=== PATIENT | female | born 2005 | race Caucasian/White ===

== ENCOUNTER 2025-02-13 19:45 | Emergency (ER) | payer BC, SELFPAY ==
--- NOTE | ~2025-02-13 | CT_ITS ---
CT ABDOMEN AND PELVIS WITHOUT CONTRAST Clinical History: right flank pain Comparison: None Technique: Unenhanced axial images lung bases to symphysis pubis Coronal, sagittal reformats CT images acquired with automatic exposure control for dose reduction DLP: 1307 mGy-cm Findings: Without intravenous contrast, sensitivity for detecting visceral parenchymal abnormalities decreased. Lung bases: Clear. Visualized heart and pericardium: Unremarkable. Liver: Enlarged. Steatosis. Gallbladder: Unremarkable. Spleen: Unremarkable. Pancreas: Unremarkable. Adrenal glands: Unremarkable. Kidneys: Right kidney- Hydronephrosis. No renal stones. Left kidney- No hydronephrosis. 2 mm stone. Distal esophagus/stomach: Unremarkable. Small bowel loops: Normal caliber and wall thickness. Colon: Normal caliber and wall thickness. Normal RLQ appendix. Nodes: No enlarged nodes. Peritoneum: No ascites. No free intraperitoneal air. Urinary bladder: 2 mm stone right UVJ. Uterus: Unremarkable. Adnexa: No masses. Bones: No acute bony abnormality. Soft tissues: Unremarkable. Unopacified abdominal aorta: No aneurysmal dilatation. IMPRESSION: 1. Hydronephrosis right kidney due to 2 mm UVJ stone. 2. Additional findings as above. Reviewed, dictated and finalized at location R. D ENGINEER
[2025-02-13 19:52] VITALS: BP 155/99; PULSE 90; RESP 18; TEMP 36.9; O2SAT 98
[2025-02-13 20:17] VITALS: BP 126/81; PULSE 89; RESP 14; TEMP 36.9; O2SAT 98
[2025-02-13] MEDS: MORPHINE SULFATE (*CRX) 4 MG/ML INJ 2 MG IV PUSH (22:46)
[2025-02-13] MEDS: Please add drug allergy info to patient profile. 1 EACH XX (22:46)
[2025-02-13 22:50] LABS: Hematocrit 31.8 % (37.0-47.0); Hemoglobin 9.1 g/dL (12.0-15.0); Immature Granulocyte Percent A 0.4 % (0-0.5); Lymphocytes Absolute Auto 2.39 K/mm3 (0.9-3.2); Mean Corpuscular HGB Conc 28.6 g/dl (32-36); Mean Corpuscular Hemoglobin 18.2 pg (26-34); Mean Corpuscular Volume 63.6 fl (80-100); Nucleated Red Blood Cells Absolute Auto 0.000 K/mm3 (0.0-0.012); Nucleated Red Blood Cells Perc 0.0 % (0.0-0.2); Platelet Count Result 527 k/mm3 (150-375); Red Blood Count 5.00 M/mm3 (4.2-5.4); White Blood Count 16.4 K/mm3 (4.5-10.0)
--- NOTE | 2025-02-13 23:02 | ED_ITS ---
HPI - General Adult General Chief complaint: Back Pain/Injury Stated complaint: R kidney stone Time Seen by Provider: 02/13/25 20:12 History of Present Illness HPI narrative: 19-year-old female presenting with right flank pain. Patient states symptoms began last Sunday, initially presenting as a stomachache. Patient states a CT scan was ordered by her PCP which demonstrated a 3 mm kidney stone. Patient was provided with conservative therapy and instructed to come to the ER if symptoms worsened. Patient reports onset of persistent vomiting, unable to tolerate oral intake, and states her pain became unmanageable yesterday. Continues to report right flank pain, increased urinary frequency, and dysuria. Denies fevers/chills, chest pain/shortness of breath, diarrhea, or vaginal concerns. Related Data Allergies Allergy/AdvReac Type Severity Reaction Status Date / Time No Known Allergies Allergy Verified 02/13/25 22:45 Review of Systems 2 Review of Systems: All systems reviewed & are unremarkable except as noted in HPI and below Exam 2 Narrative: GENERAL: Well-appearing, well-nourished, and in no acute distress. HEAD: Normocephalic, atraumatic. EYES: PERRLA and EOMI. ENT: Nares clear, no rhinorrhea or epistaxis. Mucous membranes moist. Oropharynx without tonsillar hypertrophy exudate or other lesions. Bilateral TMs pearly aguilra non-bulging NECK: Supple. No adenopathy or masses. No carotid bruits or JVD CHEST: Clear to auscultation. No respiratory distress. No wheezes rales or rhonchi HEART: Regular rate and rhythm. No murmur heard. Normal peripheral pulses. ABDOMEN: Soft, nondistended, normal active bowel sounds. Mild right sided TTP. EXTREMITIES: Normal range of motion. No edema. SKIN: Warm, dry, no rash. NEURO: No focal deficits. Alert and oriented x3. PSYCH: Normal mood and affect Course Vital Signs Vital signs: Vital Signs Temperature 98.4 F 02/13/25 19:52 Pulse Rate 90 02/13/25 19:52 Respiratory Rate 18 02/13/25 19:52 Blood Pressure 155/99 H 02/13/25 19:52 Pulse Oximetry 98 02/13/25 19:52 Oxygen Delivery Room Air 02/13/25 19:52 Temperature 98.4 F 02/13/25 20:17 Pulse Rate 86 02/14/25 01:37 Respiratory Rate 14 02/14/25 01:37 Blood Pressure 135/74 02/14/25 01:37 Pulse Oximetry 99 02/14/25 01:37 Oxygen Delivery Room Air 02/13/25 19:52 Medical Decision Making MDM Narrative Medical decision making narrative: 19-year-old female presenting with right flank pain. Patient states symptoms began last Sunday, initially presenting as a stomachache. Patient states a CT scan was ordered by her PCP which demonstrated a 3 mm kidney stone. Patient was provided with conservative therapy including ciprofloxacin, tamsulosin, and tramadol and instructed to come to the ER if symptoms worsened. Patient reports onset of persistent vomiting, unable to tolerate oral intake, and states her pain became unmanageable yesterday. Continues to report right flank pain, increased urinary frequency, and dysuria. Denies fevers/chills, chest pain/shortness of breath, diarrhea, or vaginal concerns. Upon my initial exam patient is resting comfortably, no longer reporting nausea. States pain is a 6/10. Administered 2 mg of morphine with improvement in pain. CT abdomen pelvis demonstrates right hydroureteronephrosis with 2-3 mm calculus at the right distal ureter/UVJ, punctate nonobstructing left renal calculus, and urinary bladder wall thickening. UA demonstrates signs of a UTI. Labs demonstrate leukocytosis at 16.3 and H&H of 9.3 and 31.8. No prior lab work to compare to but patient and mother report improvement in leukocytosis and are aware of her low H&H all previously addressed with PCP. Recently began supplementation for this. Advised patient to continue tamsulosin and antibiotic. Will send home with short-term pain control, antiemetic, and a referral for Urology follow-up. Given 1 L NS before discharge. Patient agrees with discussion and after shared medical decision making agrees with plan of care. All questions were answered to the patient's satisfaction. The patient is appropriate for outpatient treatment and follow-up. Given reasons to return. Medical Records Medical records reviewed: Yes I reviewed the external patient's medical records. Vital Signs Vital Signs: Vital Signs Temperature 98.4 F 02/13/25 19:52 Pulse Rate 90 02/13/25 19:52 Respiratory Rate 18 02/13/25 19:52 Blood Pressure 155/99 H 02/13/25 19:52 Pulse Oximetry 98 02/13/25 19:52 Oxygen Delivery Room Air 02/13/25 19:52 Temperature 98.4 F 02/13/25 20:17 Pulse Rate 86 02/14/25 01:37 Respiratory Rate 14 02/14/25 01:37 Blood Pressure 135/74 02/14/25 01:37 Pulse Oximetry 99 02/14/25 01:37 Oxygen Delivery Room Air 02/13/25 19:52 Lab Data Lab results reviewed: Yes I reviewed the patient's lab results. 02/13/25 22:45 02/13/25 22:45 Labs: Lab Results 02/13/25 02/13/25 Range/Units 20:21 22:45 WBC 16.4 H (4.5-10.0) K/mm3 RBC 5.00 (4.2-5.4) M/mm3 Hgb 9.1 L (12.0-15.0) g/dL Hct 31.8 L (37.0-47.0) % MCV 63.6 L (80-100) fl MCH 18.2 L (26-34) pg MCHC 28.6 L (32-36) g/dl RDW 18.9 H (11.5-14.5) % Plt Count 527 H (150-375) k/mm3 MPV 9.0 (7.4-10.4) fl Immature Gran % (Auto) 0.4 (0-0.5) % Neut % (Auto) 79.2 H (45.5-73.1) % Lymph % (Auto) 14.6 L (18.3-44.2) % [place] % (Auto) 3.9 (2.6-8.5) % Eos % (Auto) 1.5 (0-4.4) % Baso % (Auto) 0.4 (0.2-1.2) % Lymph # (Auto) 2.39 (0.9-3.2) K/mm3 [place] # (Auto) 0.6 (0.1-0.6) K/mm3 Eos # (Auto) 0.2 (0-0.3) K/mm3 Baso # (Auto) 0.1 (0.0-0.1) K/mm3 Abs Immat Gran (auto) 0.06 H (0.00-0.031) K/mm3 Absolute Neuts (auto) 13.0 H (1.3-6.7) K/mm3 Absolute Nucleated RBC 0.000 (0.0-0.012) K/mm3 Band Neutrophils % Not Reportable Nucleated RBC % 0.0 (0.0-0.2) % Platelet Estimate Increased (Adequate) Hypochromasia 1+ Ovalocytes 1+ Schistocytes None seen Sodium 138 (137-145) mmol/L Potassium 3.7 (3.4-5.0) mmol/L Chloride 106 (98-107) mmol/L Carbon Dioxide 26 (22-30) mmol/L Anion Gap 6 (4-12) mmol/L BUN 9 (7-17) mg/dL Creatinine 0.62 L (0.7-1.0) mg/dL Estim Creat Clear Calc 178 ml/min Estimated GFR > 60 (59 - ) Glucose 107 (65-110) mg/dL Calcium 9.0 (8.4-10.2) mg/dL Total Bilirubin 0.5 (0.2-1.3) mg/dL AST 23 (14-36) U/L ALT 25 (6-35) U/L Alkaline Phosphatase 106 (38-126) U/L Total Protein 7.3 (6.3-8.2) g/dL Albumin 4.1 (3.5-5.1) g/dL Urine Color Dark yellow (Yellow) Urine Appearance Clear (Clear) Urine pH 5.0 (5.0-9.0) Ur Specific [place] 1.008 (1.001-1.035) Urine Protein Negative (Negative) mg/dL Urine Glucose (UA) Negative (Negative) mg/dL Urine Ketones Negative (Negative) mg/dL Ur Blood (Man) 3+ H (Negative) Urine Nitrate Positive H (Negative) Urine Bilirubin Negative (Negative) Urine Urobilinogen 1.0 (<2.0) mg/dL Add Ur Microanalysis Reviewed Leukocyte Esterase Rfl Trace H (Negative) FAYE/UL Urine RBC 6-10 H (0-2) /hpf Urine WBC 0-5 (0-3) /hpf Ur Squamous Epith Cells None seen (Few) /hpf Urine Bacteria None seen /hpf Urine Casts 0-2 Urine Mucus Present /lpf Imaging Data Attestation: I personally reviewed and interpreted this imaging study as follows: Radiologist's impression: CT abdomen and pelvis without contrast impression: Right hydroureteronephrosis with 2-3 mm calculus in the right distal ureter/UVJ. Punctate nonobstructing left renal calculus. Urinary bladder wall thickening, nonspecific. Correlate with urinalysis. No bowel obstruction or inflammation. Hepatic steatosis and hepatomegaly. Discharge Plan Discharge Clinical Impression: Nephrolithiasis Patient Disposition: Home Condition: Stable Instructions: Antibiotic Form, Kidney Stones (ED) Additional Instructions: Return to the emergency department if you experience fever, chest pain, shortness of breath, abdominal pain with nausea and vomiting, weakness, numbness/tingling, or any other symptoms that are concerning to you. Take pain medicine as needed and prescribed. Do not drive, operate heavy machinery, or drink alcohol while taking opiates as this may cause further sedation. Take anti-inflammatories (Aleve, Ibuprofen, Naproxen, etc) or Tylenol as needed for breakthrough pain. Follow-up with urology. Follow up with primary care doctor for any other general concerns. Patient Language: Hungarian Prescriptions: New ondansetron 4 mg tablet,disintegrating 4 mg PO Q6H PRN (Reason: nausea and vomiting) Qty: 20 0RF hydrocodone-acetaminophen 5-325 mg tablet 1 tablet PO Q6H PRN (Reason: pain) Qty: 10 0RF Follow-up/Referrals: Raul Nunez MD [Physician, Urology] PHYSICIAN NOT ON STAFF,NONSTAFF [Primary Care Provider]
[2025-02-13 23:03] LABS: Alanine Aminotransferase 25 U/L (6-35); Albumin Level 4.1 g/dL (3.5-5.1); Alkaline Phosphatase 106 U/L (38-126); Anion Gap 6 mmol/L (4-12); Aspartate Amino Transferase 23 U/L (14-36); Bilirubin,Total 0.5 mg/dL (0.2-1.3); Blood Urea Nitrogen 9 mg/dL (7-17); Calcium 9.0 mg/dL (8.4-10.2); Carbon Dioxide 26 mmol/L (22-30); Chloride 106 mmol/L (98-107); Estimated CRCL calculation 178 ml/min; Estimated Glomerular Filt Rate > 60; Glucose 107 mg/dL (65-110); Potassium 3.7 mmol/L (3.4-5.0); Sodium 138 mmol/L (137-145); Total Protein 7.3 g/dL (6.3-8.2)
[2025-02-13 23:10] LABS: Hypochromasia 1+; Ovalocytes 1+; Schistocytes None Seen
[2025-02-14 00:33] LABS: Add Urine Microscopic? YES; Appearance Urine Clear (Clear); Glucose Urine UA Negative (Negative); Leukocyte Esterase Ur Trace LEU/UL (Negative); Need Manual Microscopic Reviewed; Nitrate Urine Positive (Negative); Non Pathogenic Casts 0-2; Specific Grav Ur 1.008 (1.001-1.035)
[2025-02-14] MEDS: SODIUM CHLORIDE 0.9% IV 1,000 ML 999 ML IV CONT (00:41)
[2025-02-14] MEDS: MORPHINE SULFATE (*CRX) 4 MG/ML INJ IV PUSH (01:33)
[2025-02-14 01:37] VITALS: BP 135/74; PULSE 86; RESP 14; O2SAT 99
[2025-02-16 11:47] LABS: BEDSIDEPREGUCG Negative (Negative)
== END 2025-02-14 01:45 | disposition home or self-care (01) ==
DX: N20.0 Calculus of kidney (principal)
CPT/HCPCS: 36415; 74176; 80053; 81001; 81025; 85025; 87086; 96361; 96374; 99284; J2270; J7030